=== PATIENT | female | born 1950 | race Caucasian/White ===

== ENCOUNTER 2016-12-27 17:50 | Emergency (ER) | payer MEDICARE ==
[~2016-12-27 17:50] MED LIST: ALBU2TAB4 PO; ALBUAER3 INH; ALPR0.25 PO; AMIO200T PO; CIPR-9 PO; CLOP75TA PO; EPIT200T PO; ESCI20TA PO; FOLBTAB4 PO; FURO40TA PO; HYDR-3580 PO; HYDR200T3 PO; NOVONP2 SQ; NOVORP2 SQ; PANT40TA3 PO; POTA10TA8 PO; PRED5TAB PO; RANI150T PO; ROPI0.5T PO; VALS1TAB70 PO; WARF-60 PO
[2016-12-27 18:20] VITALS: BP 155/77; PULSE 60; RESP 20; TEMP 98.6; O2SAT 97
[2016-12-27] MEDS ORDERED: EPIT200T PO (18:44)
[2016-12-27] MEDS ORDERED: CO Q100C9 (18:44)
[2016-12-27] MEDS ORDERED: FLUT50SP EACH NARE (18:44)
[2016-12-27] MEDS ORDERED: ATOR40TA16 PO (18:44)
[2016-12-27] MEDS ORDERED: AMIO200T PO (18:44)
[2016-12-27] MEDS ORDERED: SODIUM CHLORIDE 0.9% FLUSH 5 ML FLUSH IV FLUSH PRN (18:45)
[2016-12-27] MEDS ORDERED: MECLIZINE HCL 25 MG TAB PO ONE (18:45)
[2016-12-27 18:46] VITALS: O2SAT 98
[2016-12-27 18:55] LABS: AUTOMATED NEUTROPHIL # 4.4 TH/MM3 (1.8-7.7); BASOPHIL % 0.5 % (0.0-2.0); EOSINOPHIL % 0.1 % (0.0-4.0); HEMATOCRIT 27.4 % (35.0-46.0); HEMO FLAGS DIFF FINAL; LYMPH % 13.3 % (9.0-44.0); LYMPHOCYTE # 0.7 TH/MM3 (1.0-4.8); MEAN CELL VOLUME 94.9 FL (80.0-100.0); MEAN CORPUSCULAR HEMOGLOBIN 30.9 PG (27.0-34.0); MEAN CORPUSCULAR HGB CONC 32.5 % (32.0-36.0); NEUT % 78.1 % (16.0-70.0); PLATELET COUNT 185 TH/MM3 (150-450); RED BLOOD COUNT 2.89 MIL/MM3 (4.00-5.30); RED CELL DISTRIBUTION WIDTH 14.9 % (11.6-17.2); WHITE BLOOD COUNT 5.5 TH/MM3 (4.0-11.0)
[2016-12-27 19:04] LABS: POTASSIUM 4.1 MEQ/L (3.5-5.1)
[2016-12-27 19:08] LABS: BICARBONATE 22.2 MEQ/L (21.0-32.0)
[2016-12-27 19:09] VITALS: BP 166/79; PULSE 65; RESP 16; O2SAT 100
[2016-12-27 19:13] LABS: APTT (PATIENT) 33.9 SEC (24.3-30.1); INDIRECT BILIRUBIN 0.1 MG/DL (0.0-0.8); INTERNATIONAL NORMALIZED RATIO 1.8 RATIO; PROTHROMBIN TIME - PATIENT 20.9 SEC (9.8-11.6); TOTAL BILIRUBIN ADULT 0.3 MG/DL (0.2-1.0)
[2016-12-27 19:16] LABS: BLOOD, URINE MOD (NEG); GLUCOSE,URINE NEG (NEG); KETONE, URINE NEG (NEG); NITRITE,URINE NEG (NEG)
[2016-12-27 19:35] LABS: URINE COLOR YELLOW (YELLW/STRAW)
[2016-12-27 19:36] LABS: MUCUS URINE OCC /lpf (OCC)
[2016-12-27 19:37] LABS: SQUAMOUS EPITHELIAL CELL URINE 0-5 /hpf (0-5)
[2016-12-27 19:38] LABS: COMMENT (UR) CULTURE INDICATED; CULTURE IF INDICATED CULTURE INDICATED
--- NOTE | 2016-12-27 19:52 | RADRPT ---
EXAM DATE/TIME: 12/27/2016 19:26 [facility] COMPARISON: No previous studies available for comparison. INDICATIONS : Dizziness today. MEDICAL HISTORY : Chronic obstructive pulmonary disease. Hypertension. Diabetes mellitus type 2. SURGICAL HISTORY : Coronary artery stent. Cholecystectomy. Hysterectomy. ENCOUNTER: Initial ACUITY: 1 day PAIN SCORE: 0/10 LOCATION: Bilateral chest FINDINGS: A single view of the chest demonstrates the lungs to be symmetrically aerated without evidence of mas s, infiltrate or effusion. The cardiomediastinal contours are prominent. Osseous structures are inta ct. CONCLUSION: 1. No acute findings. Loop recording device. Cardiomegaly. Arnulfo Bliss MD on December 27, 2016 at 19:49 Board Certified Radiologist. This report was verified electronically.
[2016-12-27 19:56] VITALS: BP 187/98; PULSE 64; RESP 18; O2SAT 99
--- NOTE | 2016-12-27 20:25 | RADRPT ---
EXAM DATE/TIME: 12/27/2016 19:33 [facility] COMPARISON: No previous studies available for comparison. INDICATIONS : Dizziness RADIATION DOSE: 57.70 CTDIvol (mGy) MEDICAL HISTORY : Hypertension. Cardiovascular disease Deep venous thrombosis. SURGICAL HISTORY : Tonsillectomy. Coronary artery stent.Brain trigeminal surgery ENCOUNTER: Initial ACUITY: 4 - 6 days PAIN SCALE: 0/10 LOCATION: cranial TECHNIQUE: Multiple contiguous axial images were obtained of the head. Using automated exposure control and adj ustment of the mA and/or kV according to patient size, radiation dose was kept as low as reasonably a chievable to obtain optimal diagnostic quality images. DICOM format image data is available electro nically for review and comparison. FINDINGS: CEREBRUM: The ventricles are normal for age. No evidence of midline shift, mass lesion, hemorrhage or acute in farction. No extra-axial fluid collections are seen. POSTERIOR FOSSA: The cerebellum and brainstem are intact. The 4th ventricle is midline. The cerebellopontine angle i s unremarkable. EXTRACRANIAL: The visualized portion of the orbits is intact. SKULL: Postoperative left occipital craniotomy. No evidence of skull fracture. CONCLUSION: 1. No acute intracranial abnormalities. Previous left occipital craniotomy. Arnulfo Bliss MD on December 27, 2016 at 20:22 Board Certified Radiologist. This report was verified electronically.
[2016-12-27] MEDS ORDERED: cefTRIAXone INJ 1,000 MG in SODIUM CHLORIDE 0.9% INJ 100 ML IV ONE (21:00)
[2016-12-27] MEDS ORDERED: DIAZEPAM 5 MG TAB PO ONE (21:00)
--- NOTE | 2016-12-27 21:09 | PD ---
HPI Chief Complaint: Dizziness Time Seen by Provider: 18:31 Travel History International Travel<30 days: No Contact w/Intl Traveler<30days: No Traveled to known affect area: No History of Present Illness HPI Patient is a 66-year-old female with history of hepatitis C, who comes in complaining of dizziness. His history of liver failure and chronic kidney disease. Her daughter states that she has gained 20 pounds in the past few weeks. She says that today she has been so dizzy, but she feels like she is going to fall over. She says it is worse when she stands up and moves her head. She denies any headache. She has not been having any abdominal pain. She denies any shortness of breath. She denies any chest pain. Her daughter says that she has been a little confused throughout the day. PFSH Past Medical History Hx Anticoagulant Therapy: Yes Arthritis: Yes (RA) Asthma: Yes Autoimmune Disease: Yes (RHEUMATOID ARTHRITIS) Blood Disorders: No Anxiety: Yes Depression: Yes Heart Rhythm Problems: No Cancer: No Cardiac Catheterization: Yes (2008) Cardiovascular Problems: Yes High Cholesterol: Yes Chemotherapy: No Chest Pain: Yes Congestive Heart Failure: No Cirrhosis: Yes (HEP C) COPD: Yes Cerebrovascular Accident: Yes Diabetes: Yes Patient Takes Glucophage: No Diminished Hearing: Yes (BILATERAL/TINNITUS) Deep Vein Thrombosis: Yes Endocrine: Yes Fibromyalgia: Yes Gastrointestinal Disorders: Yes (IBS) GERD: Yes Genitourinary: No Headaches: Yes Hepatitis: Yes (HEP C) Hiatal Hernia: No Herniated Disk: Yes (LUMBAR 4-5?) Hypertension: Yes Immune Disorder: Yes (LUPUS DX 2010) Implanted Vascular Access Dvce: No Musculoskeletal: Yes (RA) Neurologic: Yes (RIGHT FOOT DROP, NEUROPATHY, RLS) Psychiatric: Yes Reproductive: No Respiratory: Yes Immunizations Current: Yes Migraines: Yes Myocardial Infarction: Yes (2011) Pneumonia: Yes (2010) Radiation Therapy: No Renal Failure: Yes Seizures: No Shingles: Yes Sleep Apnea: Yes Thyroid Disease: No Ulcer: Yes PNEUMOCCOCAL Vaccine (Year): 2 Menopausal: Yes : 3 Para: 3 Tubal Ligation: Yes Past Surgical History Abdominal Surgery: Yes AICD: No Arteriovenous Shunt: No Body Medical Devices: clot removal, endometrial abulation, right breast tumor removal, rhinoplast Cardiac Surgery: Yes (SX REMOVED LG BLOOD CLOT IN RT GROIN ARTERY IN 04) Cholecystectomy: Yes (2006) Coronary Artery Bypass Graft: No Endocrine Surgery: No Eye Surgery: No Genitourinary Surgery: No Gynecologic Surgery: Yes (TUBAL IN 80 AND LG TUMOR REMOVED RT BREAST IN 98, ENDOMETRIAL ABLATION) Hysterectomy: Yes Insulin Pump: No Joint Replacement: No Neurologic Surgery: Yes (BRAIN-TRIGEMINAL NEURALGIA X2) Pacemaker: No Thoracic Surgery: No Tonsillectomy: Yes (1960) Other Surgery: Yes (RHINOPLASTY, GALLBLADDER, TUBAL LIGATION, CYST REMOVAL) Family History Family Myocardial Infarction: Yes Social History Alcohol Use: No Tobacco Use: No Substance Use: No Allergies-Medications (Allergen,Severity, Reaction): Coded Allergies: Sulfa (Sulfonamide Antibiotics) (Unverified Allergy, Severe, 12/27/16) "BAD ALLERGY REACTION" adhesive (Unverified Allergy, Severe, PAPER ADHESIVE TAPE = BLOOD BLISTERS , 12/27/16) amoxicillin (Unverified Allergy, Severe, FEVER/INFECTION, 12/27/16) aspirin (Unverified Allergy, Severe, GI UPSET/ULCER, 12/27/16) bupropion (Unverified Allergy, Severe, HIVES, 12/27/16) butorphanol (Unverified Allergy, Severe, DYSPNEA, 12/27/16) ELEVATED BODY TEMPERATURE carbamazepine (Unverified Allergy, Severe, HIVES WITH TEGRETOL XR, 12/27/16) clavulanic acid (Unverified Allergy, Severe, FEVER/INFECTION, 12/27/16) codeine (Unverified Allergy, Severe, ULCER, 12/27/16) doxycycline (Unverified Allergy, Severe, 12/27/16) NOT SURE OF TYPE OF ALLERGY erythromycin base (Unverified Allergy, Severe, SOB/HIVES, 12/27/16) gabapentin (Unverified Allergy, Severe, MEMORY LOSS, 12/27/16) guaifenesin (Unverified Allergy, Severe, ANURIA, 12/27/16) "BAD ALLERGY" hydromorphone (Unverified Allergy, Severe, Nausea/Vomiting/SOB, 12/27/16) meperidine (Unverified Allergy, Severe, SOB, 12/27/16) metronidazole (Unverified Allergy, Severe, 12/27/16) PER PT DENIES ALLERGY TO FLAGYL minocycline (Unverified Allergy, Severe, 12/27/16) NOT SURE OF TYPE OF ALLERGY morphine (Unverified Allergy, Severe, Nausea/Vomiting/COMA, 12/27/16) penicillin G (Unverified Allergy, Severe, 12/27/16) phenylephrine (Unverified Allergy, Severe, 12/27/16) PT NOT SURE IF SHE IS ALLERGIC TO THIS MED phenylpropanolamine (Unverified Allergy, Severe, 12/27/16) PT NOT SURE IF SHE IS ALLERGIC TO THIS MED povidone-iodine (Unverified Allergy, Severe, BETADINE-RASH, 12/27/16) Patient reports mild reaction to topical Iodine only. No previous reaction to Iodine administered IV. tigecycline (Unverified Allergy, Severe, 12/27/16) NOT SURE OF TYPE OF ALLERGY venlafaxine (Unverified Allergy, Severe, RASH WITH EFFEXOR XR, 12/27/16) iodine (Unverified Allergy, Mild, BETADINE-RASH, 12/27/16) Patient reports mild reaction to topical Iodine only. No previous reaction to Iodine administered IV. potassium iodide (Unverified Allergy, Mild, BETADINE-RASH, 12/27/16) Patient reports mild reaction to topical Iodine only. No previous reaction to Iodine administered IV. sodium iodide (Unverified Allergy, Mild, BETADINE-RASH, 12/27/16) Patient reports mild reaction to topical Iodine only. No previous reaction to Iodine administered IV. sodium iodide (Unverified Allergy, Mild, BETADINE-RASH, 12/27/16) Patient reports mild reaction to topical Iodine only. No previous reaction to Iodine administered IV. Reported Meds & Prescriptions Reported Meds & Active Scripts Active Reported Fluticasone Nasal [place] 50 Mcg/Act Naspr 50 Mcg EACH NARE BID 50 mcg/spray Co Q 10 (Coenzyme Q10 (Ubidecarenone)) 100 Mg-5 Unit Cap Amiodarone (Amiodarone HCl) 200 Mg Tab 200 Mg PO DAILY Atorvastatin (Atorvastatin Calcium) 40 Mg Tab 40 Mg PO HS Epitol (Carbamazepine) 200 Mg Tab 200 Mg PO BID Novolin N Inj (Insulin Human NPH) 1,000 Unit/10 Ml Vial 35 Units SQ BID Sliding Scale As Directed. Novolin R Inj (Insulin Human Regular) 1,000 Unit/10 Ml Vial 0 SQ DIRECTED Sliding Scale As Directed. Proair Hfa 8.5 GM Inh (Albuterol Sulfate) 90 Mcg/Act Aer 2 Puff INH Q4-6H PRN 108 mcg/actuation Folbic (Folic Azxl-Enmnutypfg-Odxcnudo) 2.5-25-2 Mg Tab 1 Tab PO DAILY Warfarin 6 Mg Tab 6 Mg PO DAILY Prednisone 5 Mg Tab 5 Mg PO BID Ranitidine (Ranitidine HCl) 150 Mg Tab 150 Mg PO BID Ropinirole 0.5 Mg Tab 0.5 Mg PO BID Hydroxychloroquine (Hydroxychloroquine Sulfate) 200 Mg Tab 200 Mg PO BID Takw with food Furosemide 40 Mg Tab 40 Mg PO DAILY Clopidogrel (Clopidogrel Bisulfate) 75 Mg Tab 75 Mg PO DAILY Pantoprazole (Pantoprazole Sodium) 40 Mg Tab 40 Mg PO DAILY Escitalopram (Escitalopram Oxalate) 20 Mg Tab 20 Mg PO DAILY Valsartan 320 Mg Tab 320 Mg PO DAILY Alprazolam 0.25 Mg Tab 0.25 Mg PO DAILY PRN Albuterol (Albuterol Sulfate) 2 Mg Tab 2 Mg PO TID Review of Systems Except as stated in HPI: all other systems reviewed are Neg General / Constitutional: No: Fever, Chills Eyes: No: Blurred Vision HENT: Positive: Vertigo, Lightheadedness, No: Headaches Cardiovascular: No: Chest Pain or Discomfort Respiratory: No: Shortness of Breath Gastrointestinal: No: Nausea, Vomiting, Abdominal Pain Musculoskeletal: Positive: Edema, No: Myalgias Skin: No Rash, No Change in Pigmentation Neurologic: Positive: Dizziness, No: Weakness Physical Exam Narrative GENERAL: Awake and alert, in no acute distress. SKIN: Focused skin assessment warm/dry. HEAD: Atraumatic. Normocephalic. EYES: Pupils equal and round. No scleral icterus. Horizontal nystagmus, extinguishing. ENT: Mucous membranes pink and moist. NECK: Trachea midline. No JVD. CARDIOVASCULAR: Regular rate and rhythm. No murmur appreciated. RESPIRATORY: No accessory muscle use. Clear to auscultation. Breath sounds equal bilaterally. GASTROINTESTINAL: Abdomen soft, non-tender, nondistended. Ascitic fluid present. MUSCULOSKELETAL: No obvious deformities. No clubbing. No cyanosis. 1+ pitting edema bilateral lower extremities. NEUROLOGICAL: Awake and alert. No obvious cranial nerve deficits. Motor grossly within normal limits. Normal speech. PSYCHIATRIC: Appropriate mood and affect; insight and judgment normal. Data Data Last Documented VS Vital Signs Date Time Temp Pulse Resp B/P (MAP) Pulse Ox O2 Delivery O2 Flow Rate FiO2 12/27/16 19:57 Room Air 12/27/16 19:56 64 18 187/98 (127) 99 12/27/16 18:20 98.6 Orders Orders Electrocardiogram (12/27/16 18:44) Ammonia (12/27/16 18:44) Basic Metabolic Panel (Bmp) (12/27/16 18:44) Complete Blood Count With Diff (12/27/16 18:44) Prothrombin Time / Inr (Pt) (12/27/16 18:44) Act Partial Throm Time (Ptt) (12/27/16 18:44) Troponin I (12/27/16 18:44) Urinalysis - C+S If Indicated (12/27/16 18:44) Chest, Single Ap (12/27/16 18:44) Ct Brain W/O Iv Contrast(Rout) (12/27/16 18:44) Blood Glucose (12/27/16 18:44) Ecg Monitoring (12/27/16 18:44) Iv Access Insert/Monitor (12/27/16 18:44) Oximetry (12/27/16 18:44) Sodium Chloride 0.9% Flush (Ns Flush) (12/27/16 18:45) Hepatic Functional Panel (12/27/16 18:44) Meclizine (Antivert) (12/27/16 18:45) Urine Culture (12/27/16 19:00) Ceftriaxone Inj (Rocephin Inj) (12/27/16 21:00) Diazepam (Valium) (12/27/16 21:00) Labs Laboratory Tests Test 12/27/16 18:45 12/27/16 19:00 White Blood Count 5.5 TH/MM3 Red Blood Count 2.89 MIL/MM3 Hemoglobin 8.9 GM/DL Hematocrit 27.4 % Mean Corpuscular Volume 94.9 FL Mean Corpuscular Hemoglobin 30.9 PG Mean Corpuscular Hemoglobin Concent 32.5 % Red Cell Distribution Width 14.9 % Platelet Count 185 TH/MM3 Mean Platelet Volume 9.4 FL Neutrophils (%) (Auto) 78.1 % Lymphocytes (%) (Auto) 13.3 % Monocytes (%) (Auto) 8.0 % Eosinophils (%) (Auto) 0.1 % Basophils (%) (Auto) 0.5 % Neutrophils # (Auto) 4.4 TH/MM3 Lymphocytes # (Auto) 0.7 TH/MM3 Monocytes # (Auto) 0.4 TH/MM3 Eosinophils # (Auto) 0.0 TH/MM3 Basophils # (Auto) 0.0 TH/MM3 CBC Comment DIFF FINAL Differential Comment Prothrombin Time 20.9 SEC Prothromb Time International Ratio 1.8 RATIO Activated Partial Thromboplast Time 33.9 SEC Blood Urea Nitrogen 35 MG/DL Creatinine 3.20 MG/DL Random Glucose 118 MG/DL Total Protein 6.3 GM/DL Albumin 2.5 GM/DL Calcium Level 7.7 MG/DL Alkaline Phosphatase 112 U/L Aspartate Amino Transf (AST/SGOT) 257 U/L Alanine Aminotransferase (ALT/SGPT) 86 U/L Total Bilirubin 0.3 MG/DL Direct Bilirubin 0.2 MG/DL Sodium Level 140 MEQ/L Potassium Level 4.1 MEQ/L Chloride Level 108 MEQ/L Carbon Dioxide Level 22.2 MEQ/L Anion Gap 10 MEQ/L Estimat Glomerular Filtration Rate 15 ML/MIN Indirect Bilirubin 0.1 MG/DL Ammonia 25 MCMOL/L Troponin I 0.03 NG/ML Urine Collection Type Urine Color YELLOW Urine Turbidity CLEAR Urine pH 6.0 Urine Specific [place] 1.010 Urine Protein 100 mg/dL Urine Glucose (UA) NEG mg/dL Urine Ketones NEG mg/dL Urine Occult Blood MOD Urine Nitrite NEG Urine Bilirubin NEG Urine Leukocyte Esterase TRACE Urine RBC 4-9 /hpf Urine WBC 9-14 /hpf Urine Squamous Epithelial Cells 0-5 /hpf Urine Amorphous Sediment SMALL Urine Hyaline Casts 3-5 /lpf Urine Mucus OCC /lpf Microscopic Urinalysis Comment CULTURE INDICATED MDM Medical Decision Making Medical Screen Exam Complete: Yes Emergency Medical Condition: Yes Medical Record Reviewed: Yes Interpretation(s) ECG shows normal sinus rhythm at 63, no ST elevation or depression, normal intervals. Differential Diagnosis UTI versus pneumonia versus encephalopathy versus vertigo Narrative Course Patient is a 66-year-old female comes in complaining of dizziness. Exam shows no neurologic abnormalities. Patient does have increased ascites of her abdomen as well as some edema of her lower extremities. IV established, labs sent. Labs show a creatinine of 3.2. It was 2.8 in September. INR is 1.8, which is subtherapeutic on her Coumadin. She is informed of this. Hemoglobin is 8.9, which is similar to previous. Urinalysis is positive for UTI. Patient was given meclizine for dizziness, with some improvement of her symptoms. She says she still feels a little dizziness, we'll try Valium. Given Rocephin for her UTI. CT of her head performed shows no acute abnormalities. Last [address] [id number] Signed Impressions: Service Date/Time: Tuesday, December 27, 2016 19:33 - CONCLUSION: 1. No acute intracranial abnormalities. Previous left occipital craniotomy. Arnulfo Bliss MD Chest X-Ray [id number] Signed Impressions: Service Date/Time: Tuesday, December 27, 2016 19:26 - CONCLUSION: 1. No acute findings. Loop recording device. Cardiomegaly. Arnulfo Bliss MD Chest x-ray shows no evidence of fluid in the lungs. Patient states she is feeling better and she is asking to go home. She and her daughter are comfortable with discharge at this time. Patient informed of all of the results. She is advised follow-up with her doctors tomorrow. We'll discharge with prescription for Cipro. Advised to return any time for any worsening symptoms. Diagnosis Primary Impression: UTI (urinary tract infection) Qualified Codes: N30.00 - Acute cystitis without hematuria Additional Impression: Vertigo Patient Instructions: Dizziness (ED), General Instructions, Urinary Tract Infection in Women (ED) Additional Instructions: Follow-up with your doctors. Take meclizine as needed for dizziness. Take all of your antibiotic. Return to the ED as needed for any worsening symptoms. Scripts Nitrofurantoin Monohydrate Macrocrystals (Macrobid) 100 Mg Capsule 100 MG PO BID for Infection for 5 Days, CAP 0 Refills Prov: Sussy Servin MD 12/27/16 Meclizine (Meclizine) 25 Mg Tab 25 MG PO TID Y for VERTIGO, #15 TAB 0 Refills Prov: Sussy Servin MD 12/27/16 Disposition: 01 DISCHARGE HOME Condition: Stable Sussy Servin MD Dec 27, 2016 21:09
[2016-12-27 21:30] VITALS: BP 169/86; PULSE 68; O2SAT 99
[2016-12-27] MEDS ORDERED: MECL-62 PO (21:42)
[2016-12-27] MEDS ORDERED: MACR100C2 PO (21:42)
--- NOTE | 2016-12-28 17:52 | EKG ---
Date Performed: 12/27/2016 Time Performed: 18:52:12 PTAGE: 66 years EKG: Sinus rhythm MARKED LEFT AXIS DEVIATION Poor R wave progression Cannot exclude old anteroseptal infarct vs lead p lacement ABNORMAL ECG PREVIOUS TRACING : 06/03/2015 18.06 DOCTOR: Edgardo Kong Interpretating Date/Time 12/28/2016 17:51:29
== END 2016-12-27 22:05 | disposition home or self-care (01) ==
LOC: PHED 17:50
DX: N39.0 Urinary tract infection, site not specified (principal); R42 Dizziness and giddiness; R94.31 Abnormal electrocardiogram [ECG] [EKG]; K72.90 Hepatic failure, unspecified without coma; I12.9 Hypertensive chronic kidney disease with stage 1 through stage 4 chronic kidney disease, or unspecified chronic kidney disease; N18.9 Chronic kidney disease, unspecified; E11.22 Type 2 diabetes mellitus with diabetic chronic kidney disease; K74.60 Unspecified cirrhosis of liver; B19.20 Unspecified viral hepatitis C without hepatic coma; J44.9 Chronic obstructive pulmonary disease, unspecified; M79.7 Fibromyalgia; I25.2 Old myocardial infarction; K21.9 Gastro-esophageal reflux disease without esophagitis; M32.9 Systemic lupus erythematosus, unspecified; Z86.718 Personal history of other venous thrombosis and embolism; Z86.73 Personal history of transient ischemic attack (TIA), and cerebral infarction without residual deficits
CPT/HCPCS: 70450; 71010; 80048; 80076; 81001; 82140; 84484; 85025; 85610; 85730; 87086; 93005; 96365; 99285; J0696